=== PATIENT | female | born 1985 | race Caucasian/White ===

== ENCOUNTER 2017-09-25 09:37 | Day surgery (SDC) | payer BC ==
[2017-09-25] MEDS ORDERED: PROPOFOL 20 ML ONE ×3 (11:02)
[2017-09-25 11:12] VITALS: BMI 31.9
[2017-09-25 12:06] VITALS: TEMP 98.7
[2017-09-25 13:23] VITALS: BP 96/61; PULSE 72
--- NOTE | 2017-09-25 13:47 | PROC ---
Endoscopy Procedure Endoscopy procedure completed. Please see scanned procedure report.
--- NOTE | 2017-09-26 17:38 | PATH ---
Surgical Pathology Report Patient Name: STELLA KUO [facility]. Rec. #: [id number] /Age/Gender: 1985 (Age: 32) / F Account: [id number] Location: [facility]ENDOSCOPY Taken: 09/25/2017 Received: 09/25/2017 Reported: 09/26/2017 Physicians: Gopal Lockett M.D. Specimen(s) Received POLYP SIGMOID Clinical History Hematochezia Postoperative diagnosis: Polyp Final Diagnosis SIGMOID COLON, POLYP, POLYPECTOMY: HYPERPLASTIC POLYP. Electronically Signed Flower Sullivan M.D. Gross Description Received in formalin labeled "polyp sigmoid colon," is a 0.7 x 0.5 x 0.5 cm hankins, polypoid portion of soft tissue. The specimen is bisected and entirely submitted in one cassette. 09/25/2017 [facility]09/25/2017
== END 2017-09-25 13:15 | disposition home or self-care (01) ==
LOC: JASU-ENDO 09:37
PROVIDERS: ATTEND Internal Medicine Gastroenterology
PROC: 3E0H8GC Introduction of Other Therapeutic Substance into Lower GI, Via Natural or Artificial Opening Endoscopic (ICD-10-PCS; 2017-09-25)
PROC: 0DBN8ZX Excision of Sigmoid Colon, Via Natural or Artificial Opening Endoscopic, Diagnostic (ICD-10-PCS; principal; 2017-09-25 11:30)
DX: K92.1 Melena (principal); K63.5 Polyp of colon; K57.30 Diverticulosis of large intestine without perforation or abscess without bleeding
CPT/HCPCS: 84703; 88305-TC

== ENCOUNTER 2019-08-24 08:01 | Day surgery (SDC) | payer BC, OTHER ==
[2019-08-20 11:41] VITALS: BMI 31.1
[2019-08-24] MEDS ORDERED: PROPOFOL 20 ML ONE (10:15)
[2019-08-24] MEDS ORDERED: MIDAZOLAM HCL 2 MG/2 ML SINGLE DOSE VIAL ONE (10:19)
--- NOTE | 2019-08-24 10:53 | HP ---
History & Physical Update - History History: No Change (metrorrhagia, endoemtrial mass) - Physical Physical: No Change - Assessment Assessment: No Change - Plan Plan: No Change (Hysteroscopy, myomectomy, D&C)
[2019-08-24] MEDS ORDERED: ceFAZolin SODIUM 1 GM VIAL IVPB ONE (11:20)
[2019-08-24] MEDS ORDERED: ceFAZolin SODIUM 1 GM VIAL ONE (11:22)
[2019-08-24] MEDS ORDERED: DEXAMETHASONE SOD PHOSPHATE 4 MG/1 ML VIAL ONE (11:22)
[2019-08-24] MEDS ORDERED: KETOROLAC TROMETHAMINE 30 MG/1 ML VIAL ONE (11:22)
[2019-08-24] MEDS ORDERED: SODIUM CHLORIDE 0.9% P/F 10 ML VIAL IJ ONE (11:22)
[2019-08-24] MEDS ORDERED: ACETAMINOPHEN 325 MG TABLET (FP) PO PRN (12:06)
[2019-08-24] MEDS ORDERED: LACTATED RINGERS SOLUTION 1,000 ML IV SCH (12:15)
[2019-08-24 13:14] VITALS: TEMP 97.5
[2019-08-24] MEDS ORDERED: ACETAMINOPHEN 325 MG TABLET (FP) ONE (13:32)
[2019-08-24 15:31] VITALS: BP 127/78; PULSE 98
--- NOTE | 2019-08-24 18:36 | OP ---
DATE OF OPERATION: 08/24/2019 PREOPERATIVE DIAGNOSIS: Menometrorrhagia and endometrial polyps. POSTOPERATIVE DIAGNOSIS: Menometrorrhagia and endometrial polyps. PROCEDURE: Hysteroscopy, polypectomy, dilation and curettage. SURGEON: Adams Manuel MD. ANESTHESIOLOGIST: Nallely Marie MD. ANESTHESIA: General. COMPLICATIONS: None. ESTIMATED BLOOD LOSS: 5 mL. INTRAVENOUS FLUIDS: 600 mL. PATHOLOGY: Endometrial curettings and endometrial polyps. FINDINGS: Examination under anesthesia revealed a small anteverted uterus with no pelvic or adnexal masses. Hysteroscopy revealed several small uterine polyps and polypoid endometrium. Otherwise a normal uterine cavity. Both fallopian tube ostia were visualized. DESCRIPTION OF PROCEDURE: The patient was met preoperatively. Risks, benefits, and alternatives of surgery were discussed. The consent form was reviewed. All questions were answered. The patient verbalized understanding and requested to proceed with surgery. She was brought to the OR with the IV running. The patient was placed on a surgical table in the supine position. The general anesthesia was achieved without difficulty. The patient was placed in a dorsal lithotomy position using adjustable Jonah stirrups. She was examined under anesthesia with the findings as described above. The patient was prepped and draped in the usual sterile fashion. A timeout was conducted as per standard protocol. A sterile speculum was then introduced inside the vagina with good visualization of the cervix. The anterior cervical lip was grasped with a single-toothed tenaculum. The cervical os was gently dilated to accommodate a size 21 Parry dilator. A hysteroscope was introduced inside the uterine cavity. The endometrial cavity had a normal shape, several small endometrial polyps were noted, as well as a polypoid-appearing endometrium. A Symphion hysteroscope and resectoscope were then used to resect all of the endometrial polyps. Once this was done, the hysteroscope was removed. A gentle uterine curettage was performed. All of the tissue was sent to pathology for evaluation. Good hemostasis was noted. All of the instruments were removed from the patient. Sponge, lap, and instrument counts were correct. Once again, good hemostasis was confirmed. The patient was returned to supine position. She was then transferred to recovery room in stable condition and awake. Sania [id number]
--- NOTE | 2019-08-26 13:54 | PATH ---
Surgical Pathology Report Patient Name: STELLA KUO Med. Rec. #: [id number] /Age/Gender: 1985 (Age: 34) / F Account: [id number] Location: [facility] SURGICAL Taken: 08/24/2019 Received: 08/24/2019 Reported: 08/26/2019 Physicians: Adams Manuel M.D. Specimen(s) Received A: ENDOMETRIAL CURETTINGS B: ENDOMETRIAL POLYP Clinical History Fibroid uterus Final Diagnosis A. ENDOMETRIAL CURETTINGS: INACTIVE/WEAKLY PROLIFERATIVE ENDOMETRIUM. SEPARATE ENDOCERVICAL TISSUE WITH NO SIGNIFICANT PATHOLOGIC CHANGE. B. ENDOMETRIAL POLYP, EXCISION: FOCAL COMPLEX ENDOMETRIAL HYPERPLASIA WITH ATYPIA, ARISING IN ENDOMETRIAL POLYPS. PORTIONS OF SMOOTH MUSCLE BUNDLES, MAY REPRESENT A SUBMUCOSAL LEIOMYOMA IN THE PROPER CLINICAL SETTINGS. Intradepartmental case reviewed with accordance on diagnosis. Electronically Signed Keo Diez M.D. Addendum Reported: 08/31/2019 Addendum Diagnosis This case was discussed with Dr. Manuel on 08/31/2019. Keo Diez M.D. Gross Description A. Received in formalin labeled "endometrial curettings," is a 1.2 x 0.9 x 0.2 cm aggregate of hankins-brown soft tissue fragments. The formalin is filtered and the specimen is entirely submitted in one cassette. B. Received in formalin labeled "endometrial polyp," is a 1.8 x 1.7 x 0.3 cm aggregate of hankins soft tissue fragments admixed with mucus. The formalin is filtered and the specimen is entirely submitted in one cassette. /08/24/2019 [place]udi/08/24/2019
== END 2019-08-24 14:30 | disposition home or self-care (01) ==
LOC: JASU-SURG 08:01
PROVIDERS: ATTEND Obstetrics & Gynecology
PROC: 0UB98ZX Excision of Uterus, Via Natural or Artificial Opening Endoscopic, Diagnostic (ICD-10-PCS; principal; 2019-08-24 10:00)
PROC: 0UDB7ZX Extraction of Endometrium, Via Natural or Artificial Opening, Diagnostic (ICD-10-PCS; 2019-08-24 10:00)
DX: N84.0 Polyp of corpus uteri (principal); N92.1 Excessive and frequent menstruation with irregular cycle
CPT/HCPCS: 81025; 86850; 86900; 86901; 88305-TC; 94760